=== PATIENT | female | born 1970 | race Two or more races ===

== ENCOUNTER 2021-09-07 14:55 | Outpatient (CLI) | payer OTHER ==
[~2021-09-07 14:55] MED LIST: BACTROBAN OINT22 GM TP; TESSALON PERLE100 M1 PO; TUSSI-PRES B LIQ5 ML; ZITHROMAX TRI-500 MG; ZYRTEC10 MG PO
== END 2021-09-07 15:10 | disposition home or self-care (01) ==
LOC: PPH VACUNA 14:55
PROVIDERS: ATTEND Emergency Medicine Pediatric Emergency Medicine
DX: Z23 Encounter for immunization (principal)

== ENCOUNTER → 2025-05-05 14:38 | Outpatient (CLI) | payer OTHER ==
[2025-05-05 08:35] LABS: URINE APPEARANCE Clear; URINE BILIRRUBIN Negative (NEGATIVE); URINE BLOOD Small; URINE COLOR Yellow; URINE GLUCOSE Negative (NEGATIVE); URINE KETONE Negative (NEGATIVE); URINE LEUKOCYTE Negative; URINE NITRATE Negative; URINE PROTEIN Negative (NEGATIVE); URINE UROBILINOGEN 0.2 E.U./dl
[2025-05-05 08:41] LABS: URINE BACTERIA 362.1 uL (0.0-1933); URINE EPITHELIAL CELLS 14.2 uL (0.0-38.8); URINE RBC 2.9 uL (0.0-20.8); URINE WBC 3.7 uL (0.0-23.2)
[2025-05-05 09:17] LABS: BASO % 1.1 % (0.1-1.2); EOS # 0.11 (0.04-0.54); EOS % 1.5 % (0.7-7.0); HEMOGLOBIN 14.8 g/dL (11.2-15.7); LYMPH # 2.69 (1.18-3.74); LYMPH % 36.3 % (19.3-53.1); MEAN CORPUSCULAR HEMOGLOBIN 31.4 pg (25.6-32.2); MONO # 0.59 (0.24-0.82); NEUT # 3.94 (1.56-6.13); PLATELET COUNT 260 K/uL (163-369); RED BLOOD COUNT 4.72 M/uL (3.93-5.22)
[2025-05-05 10:30] LABS: ALBUMIN 3.8 gm/dL (3.4-5.0); BILIRUBIN TOTAL 0.49 mg/dL (0.3-1.2); CALCIUM 9.4 mg/dL (8.5-10.1); CHOL HDL RATIO 3.1 (0-5.0); CREATININE SERUM 0.78 mg/dL (0.55-1.02); GFR 76.68; GLOBULINA 3.5 G/DL (2.4-3.5); POTASSIUM 4.19 mEq/L (3.5-5.1); TOTAL PROTEIN 7.3 gm/dL (6.4-8.2); TSH 0.716 uIU/mL (0.358-3.74)
[2025-05-06 13:08] LABS: VITAMIN D 1 25 37.3 pg/mL (24.8-81.5)
[2025-05-07 17:08] LABS: test free 1.3 pg/mL (0.0-4.2)
== END | disposition home or self-care (01) ==
LOC: LAB
PROVIDERS: ATTEND Obstetrics & Gynecology
DX: R68.82 Decreased libido (principal); N91.1 Secondary amenorrhea; Z12.11 Encounter for screening for malignant neoplasm of colon; Z13.1 Encounter for screening for diabetes mellitus; R53.81 Other malaise; E78.01 Familial hypercholesterolemia; E55.9 Vitamin D deficiency, unspecified

== ENCOUNTER → 2025-05-05 | Outpatient (CLI) | payer OTHER | END | disposition home or self-care (01) | LOC: MAMO-SONO | PROVIDERS: ATTEND Obstetrics & Gynecology | DX: N91.2 Amenorrhea, unspecified (principal); N60.11 Diffuse cystic mastopathy of right breast; N60.12 Diffuse cystic mastopathy of left breast; Z12.31 Encounter for screening mammogram for malignant neoplasm of breast ==

== ENCOUNTER → 2025-05-05 | Outpatient (CLI) | payer OTHER | END | disposition home or self-care (01) | LOC: NUCLEAR 10:23 | PROVIDERS: ATTEND Obstetrics & Gynecology | DX: M81.0 Age-related osteoporosis without current pathological fracture (principal) ==